=== PATIENT | male | born 1990 | race Caucasian/White ===

== ENCOUNTER 2016-10-03 11:36 | Emergency (ER) | payer OTHER ==
[~2016-10-03] VITALS: Ht 185.4 cm; Wt 90.0 kg
[~2016-10-03 11:36] MED LIST: FIORICET PO; KEFLEX500 MG PO; NO; ULTRAM50 M1 PO; ULTRAM50 MG OR; ZEBUTAL 50-325-1 CAP PO; ZOFRAN ODT4 MG PO
[2016-10-03] MEDS ORDERED: NAPROSYN500 MG PO (13:14)
[2016-10-03 13:25] VITALS: BP 139/74
== END 2016-10-03 13:25 | disposition home or self-care (01) | DRG 914 ==
LOC: ED 11:36
DX: S49.81XA Other specified injuries of right shoulder and upper arm, initial encounter (principal); W18.39XA Other fall on same level, initial encounter; Y93.61 Activity, american tackle football; Y92.007 Garden or yard of unspecified non-institutional (private) residence as the place of occurrence of the external cause

== ENCOUNTER 2017-02-28 14:33 | Emergency (ER) | payer SELFPAY ==
[~2017-02-28] VITALS: Ht 185.4 cm; Wt 92.0 kg
[~2017-02-28 14:33] MED LIST changes: +NAPROSYN500 MG PO
[2017-02-28] MEDS ORDERED: MUPIROCIN2 % EX (14:52)
[2017-02-28] MEDS ORDERED: BACTRIM DS1 TAB PO (14:52)
[2017-02-28] MEDS ORDERED: CEPHALEXIN500 M1 PO (14:52)
[2017-02-28 15:00] VITALS: BP 135/80
== END 2017-02-28 15:00 | disposition home or self-care (01) | DRG 603 ==
LOC: ED 14:33
DX: L03.114 Cellulitis of left upper limb (principal); B95.0 Streptococcus, group A, as the cause of diseases classified elsewhere; L03.113 Cellulitis of right upper limb